=== PATIENT | male | born 1975 | race Caucasian/White ===

== ENCOUNTER 2016-07-23 19:00 | Emergency (ER) | payer OTHER | END 2016-07-24 02:12 | disposition home or self-care (01) | LOC: FER 19:00 | DX: T23.001A Burn of unspecified degree of right hand, unspecified site, initial encounter (principal); T31.0 Burns involving less than 10% of body surface; Z23 Encounter for immunization; X17.XXXA Contact with hot engines, machinery and tools, initial encounter; Y92.69 Other specified industrial and construction area as the place of occurrence of the external cause; Y99.0 Civilian activity done for income or pay | CPT/HCPCS: 73130; 90471; 90715 ==

== ENCOUNTER 2021-02-12 09:52 | Emergency (ER) | payer OTHER ==
[~2021-02-12 09:52] MED LIST: ASPIRIN325 MG PO; LIPITOR 10MG TA10 MG PO
[2021-02-12 10:34] LABS: BASOPHIL 0.6 % (0-2); EOSINOPHIL 1.4 % (0-5); HCT 47.5 % (42.0-52.0); HGB 16.2 g/dl (13.2-18.0); LYMPHOCYTE 21.2 % (15-48); MCHC 34.1 g/dL (32.0-36.0); MONOCYTE 5.6 % (0-12); MPV 11.4 fL (6.0-9.5); NRBC 0; PLT 206 K/uL (150-400); RBC 5.22 M/uL (4.70-6.00); RDW 12.6 % (11.5-14.0); WBC 8.1 K/uL (4.0-10.5)
[2021-02-12 10:43] LABS: BUN/CREAT RATIO (CALC) 13.2 RATIO; CREATININE 0.76 mg/dL (0.67-1.17); MAGNESIUM 2.1 mg/dL (1.8-2.4); POTASSIUM 3.7 mmol/L (3.5-5.1)
[2021-02-12 11:47] LABS: BILIRUBIN NEGATIVE (NEGATIVE); BLOOD NEGATIVE Ery/uL (NEGATIVE); CLARITY CLEAR (CLEAR); COLOR YELLOW (YELLOW); GLUCOSE (U) NORMAL (NORMAL); LEUKOCYTES NEGATIVE Leu/uL (NEGATIVE); NITRITE NEGATIVE (NEGATIVE); PROTEIN NEGATIVE (NEGATIVE); UROBILINOGEN 0.2 mg/dL (0.2-1.0); pH 6.5 (5.0-9.0)
[2021-02-12 12:11] LABS: CORONAVIRUS 2019 SARS-COV-2 NEGATIVE (NEGATIVE); INFLUENZA A NAA NEGATIVE (NEGATIVE)
== END 2021-02-12 13:13 | disposition home or self-care (01) ==
LOC: FER 09:52
PROVIDERS: Internal Medicine
DX: B34.9 Viral infection, unspecified (principal); R53.1 Weakness; I10 Essential (primary) hypertension; F17.210 Nicotine dependence, cigarettes, uncomplicated; Z20.822 Contact with and (suspected) exposure to COVID-19; Z79.899 Other long term (current) drug therapy
CPT/HCPCS: 36415; 70450; 71250; 80048; 81003; 83735; 85025; J7120; U0002